=== PATIENT | female | born 1995 | race Caucasian/White ===

== ENCOUNTER 2024-02-25 12:43 | Emergency (ER) | payer OTHER, SELFPAY ==
[2024-02-25 12:49] VITALS: BP 144/100
--- NOTE | 2024-02-25 13:05 | ED.GENMED ---
History of Present Illness
<Melissa Nieves PA-C - Last Filed: 02/25/24 19:28>
General
Chief Complaint: Heart Rate Problem
Source: patient
Exam Limitations: none
Time Seen by Provider: 02/25/24 13:05
Nursing documentation reviewed up to this point in time: agreed with
History of Present Illness
History of Present Illness:
This is a 28 y/o female presents to the emergency department today with concerns of palpations that started while at work today. Patient reports that she is 20 weeks and started to notice feelings of palpitations yesterday. Patient
reports that she had an obstetrics appointment this morning with Davon Wallace and did not feel any of the symptoms, but then she went to work and started to feel them again. 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
and states that she has not exerted herself. She also states that she has had intermittent shortness of breath and sinus congestion but she denies any fevers or chills. She denies any chest pain, upper back pain, or chest discomfort. She denies
any syncopal episodes, dizziness, lightheadedness. She denies any redness or swelling in her legs. Patient denies daily caffeine use. This is her first .
Past History
<Melissa Nieves PA-C - Last Filed: 02/25/24 19:28>
Past History
ED Past Medical History: Psychiatric
ED Past Surgical History: None
Social History
Tobacco: Non-smoker
Review of Systems
<Melissa Nieves PA-C - Last Filed: 02/25/24 19:28>
Review of Systems
All Other Systems: ROS reviewed and negative except as documented in HPI and ROS
Phy Exam
<Melissa Nieves PA-C - Last Filed: 02/25/24 19:28>
Physical Exam
Physical Exam:
General: Patient is well appearing and in no acute distress; non-toxic
Skin: Warm and dry, no rashes or lesions
Head: Normocephalic, atraumatic. No tenderness palpation of the sinuses.
Eyes: Sclera non-icteric. EOMs intact. PERRLA.
Ears: TMs clear bilaterally--no erythema, no retraction or bulging. No mastoid tenderness bilaterally.
Mouth: Mild pharyngeal erythema noted, no tonsillar hypertrophy, no tonsillar exudates, uvula midline
Cardiac: Regular rate and rhythm, no murmurs
Peripheral Vascular: No lower extremity swelling, pain, or erythema
Pulm: Normal respiratory effort, no wheezes, rales, or rhonchi
Abdomen: No abdominal tenderness to palpation
Neuro: CN II-XII intact, no focal neurologic deficits.
Psychiatric: Appropriate mood and affect.
Course
<Melissa Nieves PA-C - Last Filed: 02/25/24 19:28>
Orders/Labs/Results
Orders:
Orders
02/25/24 12:46
EKG [Electrocardiogram (*1)] Urgent
Reason for Study: Tachycardia
02/25/24 12:47
EKG- Treatment ONCE
02/25/24 14:20
Complete Blood Count/With Diff Urgent
Comprehensive Metabolic Panel Urgent
Magnesium Urgent
02/25/24 14:30
Heart Tones ONCE
Abnormal Lab Results
02/25/24
14:20
WBC 12.5 H 10^3/uL
(4.8-10.8)
RBC 4.18 L 10^6/uL
(4.20-5.40)
Hct 36.2 L %
(37.0-47.0)
Abs Immat Gran (auto) 0.2 H 10^3/uL
(0-0.05)
Absolute Neuts (auto) 9.1 H 10^3/uL
(1.4-6.5)
Immature Gran % 1.4 H %
(0-0.5)
Lymphocytes % 18.8 L %
(20.5-51.1)
BUN 6 L mg/dl
(7-17)
02/25/24 14:20
02/25/24 14:20
Vital Signs
Resp Rate: 16
Initial and Last Documented VS:
Initial Vital Signs
Temp Pulse Resp BP Pulse Ox
99.2 F 99 16 144/100 99
02/25/24 12:49 02/25/24 12:49 02/25/24 12:49 02/25/24 12:49 02/25/24 12:49
Last Documented Vital Signs
Temp Pulse Resp BP Pulse Ox
99.2 F 82 27 122/92 100
02/25/24 12:49 02/25/24 16:00 02/25/24 16:00 02/25/24 16:00 02/25/24 15:31
<Munir Noriega, DO - Last Filed: 02/25/24 15:36>
Orders/Labs/Results
Orders:
Orders
02/25/24 12:46
EKG [Electrocardiogram (*1)] Urgent
Reason for Study: Tachycardia
02/25/24 12:47
EKG- Treatment ONCE
02/25/24 14:20
Complete Blood Count/With Diff Urgent
Comprehensive Metabolic Panel Urgent
Magnesium Urgent
02/25/24 14:30
Heart Tones ONCE
Abnormal Lab Results
02/25/24
14:20
WBC 12.5 H 10^3/uL
(4.8-10.8)
RBC 4.18 L 10^6/uL
(4.20-5.40)
Hct 36.2 L %
(37.0-47.0)
Abs Immat Gran (auto) 0.2 H 10^3/uL
(0-0.05)
Absolute Neuts (auto) 9.1 H 10^3/uL
(1.4-6.5)
Immature Gran % 1.4 H %
(0-0.5)
Lymphocytes % 18.8 L %
(20.5-51.1)
BUN 6 L mg/dl
(7-17)
02/25/24 14:20
02/25/24 14:20
Vital Signs
Initial and Last Documented VS:
Initial Vital Signs
Temp Pulse Resp BP Pulse Ox
99.2 F 99 16 144/100 99
02/25/24 12:49 02/25/24 12:49 02/25/24 12:49 02/25/24 12:49 02/25/24 12:49
Last Documented Vital Signs
Temp Pulse Resp BP Pulse Ox
99.2 F 82 27 122/92 100
02/25/24 12:49 02/25/24 16:00 02/25/24 16:00 02/25/24 16:00 02/25/24 15:31
Taylorlt;Melissa Nieves PA-C - Last Filed: 02/25/24 19:28>
MDM/Problems Addressed
Differential Diagnosis Includes:
Differentials include viral syndrome, physiologic changes of , pulmonary embolism, arrhythmia, electrolyte derangement, anemia,
MDM/Problems Addressed:
This is a 28 y/o female presents to the emergency department today with concerns of palpations that started while at work today. Patient reports that she is 20 weeks and started to notice feelings of palpitations yesterday which resolved
without intervention. They returned today while at work. She denies chest pain, fevers or chills, lower extremity swelling or pain. On physical exam, she is well-appearing, in no acute distress, normal respirations, lungs clear to auscultation, no
murmurs heard on exam, no lower extremity swelling or erythema. While here on the monitor in the emergency department, she had no tachycardia. Her EKG shows no concerning ischemic changes, no arrhythmia. Highly doubt pulmonary embolism at this
time. Suspect likely viral syndrome versus physiologic changes of causing patient's transient tachycardia/palpitations. Patient stable for discharge.
Chronic conditions affecting care:
anxiety
<SLIM Tejeda Last Filed: 02/25/24 19:28>
*Pulse Oximetry
Patient hypoxic: no
*EKG
Interpreted by ED Provider?: Yes
EKG Intrepretation Date: 02/25/24
Interpretation: normal
Comparison EKG: no comparison EKG present
Heart Rate: 92
Rate: normal
Rhythm: sinus
Interval: normal interval
QRS Pattern: normal QRS
*[employer] Interpretation
Rate: normal
Interpretation: normal
Heart Rate: 88
Rhythm: sinus
*Critical Care Note
Total Time (30-74mins, 75-104mins- exclusive of procedures): Not Applicable
Data Reviewed
Review of Other/Old Records Reveals: Records (Reviewed ER physician documentation from 03/09/2021, patient seen for cervical strain)
Source: patient and records
Prescriptions/Medications Considered But Not Given:
n/a
Further Testing Considered But Not Given:
n/a
<Melissa Nieves PA-C - Last Filed: 02/25/24 19:28>
Patient Management
Escalation/DeEscalation of care consider admission/obs:
admit not indicated, patient stable for discharge
ED Attending Note
<SLIM Tejeda Last Filed: 02/25/24 19:28>
-
Portions of this chart may have been created with voice recognition software.� Occasional wrong word or��sound alike� substitutions may have occurred due to the inherent limitations of voice recognition software.
<Munir Noriega, - Last Filed: 02/25/24 15:36>
ED Attending Note
Patient seen and examined by attending physician: Yes
I performed the substantive portion of visit, reviewed & personally made and approve the management plan that is documented in note by myself or TAYLOR.: Yes
ED Attending Note:
28-year-old female who is approximate 20 weeks who presents after she had a pounding heart at work. She just sits most of the time so was not exerting herself. She denies any associate shortness of chest pain. No pleuritic chest pain.
No fevers. No hemoptysis. No leg swelling. States she now feels better. She states it really was somewhat short-lived. She called her doctor because they measured her blood pressure at work it was elevated. She currently has no symptoms. She
denies vaginal bleeding. Exam: Heart regular without murmur. Legs without swelling. Heart rate 79 on exam. Respiratory rate and pulse ox normal. Assessment and plan: No clinical concern for arrhythmia or PE at this time. Patient is otherwise
well-appearing and okay for outpatient management. heart rate okay
Discharge Plan
Departure
Patient Disposition: Home (Routine Discharge)
Date of Disposition: 02/25/24
Time of Disposition: 15:52
Patient with high blood pressure during this ER visit?: Yes
Condition: Good
Discharge Problem:
Palpitations
Instructions: Palpitations (DC), BLOOD PRESSURE
Referrals:
Alva Pak MD [Family Provider] -
Activity Restrictions/Additional Instructions:
Please return to the emergency department should you experience chest pain, fainting spells, syncopal episodes, nausea and vomiting, burning with urination, dizziness, lightheadedness, or any other signs or symptoms concerning to you.
Please follow-up with your [employer] and your primary care provider.
Interventions
Interventions:
*Risk Screen - Suicide Last Done: 02/25/24 12:49
*General Assessment Last Done: 02/25/24 12:49
*Neglect/Abuse Screening Last Done: 02/25/24 12:49
ED- Fall Risk Assessment Last Done: 02/25/24 16:56
*ED COVID-19 Vaccine History Last Done: 02/25/24 14:10
*Nursing Disposition Last Done: 02/25/24 16:56
ED- Cardiac Assessment Last Done: 02/25/24 14:35
ED- Pulmonary Assessment Last Done: 02/25/24 14:35
Discharge Date and Time
Discharge Date/Time: 02/25/24 16:56
Print Language: ARABIC
[2024-02-25 13:10] VITALS: BP 128/83
[2024-02-25 14:00] VITALS: BP 122/86
[2024-02-25 14:11] VITALS: BMI 31.1
[2024-02-25 14:29] LABS: % Basophils 0.4 % (0-2); % Eosinophils 1.2 % (0-6); % Immature Granulocytes 1.4 % (0-0.5); % Lymphocytes 18.8 % (20.5-51.1); % Monocytes 4.8 % (1.7-9.3); % Neutrophils 73.4 % (42.2-75.2); Absolute Basophils 0.1 10^3/uL (0-0.2); Absolute Eosinophils 0.2 10^3/uL (0-0.7); Absolute Immature Granulocytes 0.2 10^3/uL (0-0.05); Absolute Lymphocytes 2.3 10^3/uL (1.2-3.4); Absolute Monocytes 0.6 10^3/uL (0.1-0.6); Absolute Neutrophils 9.1 10^3/uL (1.4-6.5); Hematocrit 36.2 % (37.0-47.0); Hemoglobin 12.6 g/dL (12.0-16.0); Mean Corp Hgb Conc. 34.8 g/dL (33.0-37.0); Mean Corpuscular Hgb 30.1 pg (27.0-31.0); Mean Corpuscular Volume 86.6 fL (81.0-99.0); Mean Platelet Volume 8.7 fL (7.4-10.4); Nucleated Red Blood Cells % 0 %; Platelet Count 270 10^3/uL (130-400); Red Blood Cell Count 4.18 10^6/uL (4.20-5.40); Red Cell Dist. Width 13.5 % (11.5-14.5); White Blood Cell Count 12.5 10^3/uL (4.8-10.8)
[2024-02-25 14:44] LABS: ALT (SGPT) 33 U/L (0-35); AST (SGOT) 29 U/L (14-36); Alkaline Phosphatase 72 U/L (38-126); Blood Urea Nitrogen 6 mg/dl (7-17); Calcium 9.6 mg/dl (8.4-10.2); Carbon Dioxide 24 mmol/L (22-30); Chloride 104 mmol/L (98-107); Estimated Creatinine Clearance 119 ml/min; Glucose 86 mg/dl (70-99); Magnesium 1.8 mg/dl (1.6-2.3); Potassium 3.7 mmol/L (3.5-5.1); Sodium 140 mmol/L (135-145); Total Bilirubin 0.2 mg/dl (0.2-1.3); Total Protein 6.5 g/dl (6.3-8.2); eGFR > 60.00
[2024-02-25 15:55] VITALS: BP 122/76
[2024-02-25 16:00] VITALS: BP 122/92
== END 2024-02-25 16:56 | disposition home or self-care (01) ==
LOC: EMR 12:43
PROVIDERS: Physician Assistant; EMERGENCY PHYSICIAN Emergency Medicine; FAMILY PHYSICIAN Family Medicine
DX: O26.892 Other specified pregnancy related conditions, second trimester (principal); R00.2 Palpitations; R03.0 Elevated blood-pressure reading, without diagnosis of hypertension; Z3A.20 20 weeks gestation of pregnancy
CPT/HCPCS: 99284; 80053; 83735; 85025; 93005